=== PATIENT | male | born 1975 | race African-American/Black ===

== ENCOUNTER 2016-11-22 01:31 | Emergency (ER) | payer MEDICAID ==
[~2016-11-22] VITALS: Ht 180.3 cm; Wt 77.0 kg
[2016-11-22] MEDS ORDERED: LIDOCAINE HCL/EPINEPHRINE 1%-EPI 1:100,000 20 ML VIAL INFIL ONE (07:00)
[2016-11-22 07:55] VITALS: BP 118/77
== END 2016-11-22 08:29 | disposition home or self-care (01) ==
LOC: ER 07:27
DX: L03.317 Cellulitis of buttock (principal); J45.909 Unspecified asthma, uncomplicated
CPT/HCPCS: 10060; 87070; 87077; 87205; 99284; J3490; X7700; Z7610

== ENCOUNTER 2016-11-23 08:40 | Emergency (ER) | payer MEDICAID ==
[~2016-11-23] VITALS: Ht 180.3 cm; Wt 78.0 kg
[2016-11-23] MEDS ORDERED: KETOROLAC 60MG/2ML VIAL IM ONE (10:00)
[2016-11-23] MEDS ORDERED: HYDROCODONE/ACETAMINOPHEN 5/325MG TABLET PO ONE (11:00)
[2016-11-23] MEDS ORDERED: LIDOCAINE HCL 1% 20ML VIAL (Pyxis) INJ MC ONE (11:00)
[2016-11-23 11:21] VITALS: BP 121/79
== END 2016-11-23 12:33 | disposition home or self-care (01) ==
LOC: ER 09:51
DX: Z48.01 Encounter for change or removal of surgical wound dressing (principal); J45.909 Unspecified asthma, uncomplicated
CPT/HCPCS: 96372; 99283; J1885; J3490

== ENCOUNTER 2016-11-25 05:09 | Emergency (ER) | payer MEDICAID ==
[~2016-11-25] VITALS: Ht 180.3 cm; Wt 77.0 kg
[2016-11-25 07:26] VITALS: BP 132/71
== END 2016-11-25 08:14 | disposition home or self-care (01) ==
LOC: ER 05:09
DX: Z48.01 Encounter for change or removal of surgical wound dressing (principal); J45.909 Unspecified asthma, uncomplicated
CPT/HCPCS: 99283

== ENCOUNTER 2016-12-16 10:58 | Emergency (ER) | payer MEDICAID ==
[~2016-12-16] VITALS: Ht 180.3 cm; Wt 86.0 kg
[2016-12-16] MEDS ORDERED: CYCLOBENZAPRINE 10MG TABLET PO ONE (12:00)
[2016-12-16] MEDS ORDERED: HYDROCODONE/ACETAMINOPHEN 5/325MG TABLET PO ONE ×2 (12:00→13:15)
[2016-12-16 13:27] VITALS: BP 132/74
== END 2016-12-16 14:59 | disposition home or self-care (01) ==
LOC: ER 11:23
DX: S16.1XXA Strain of muscle, fascia and tendon at neck level, initial encounter (principal); M54.5 Low back pain; R51 Headache; J45.909 Unspecified asthma, uncomplicated; V89.2XXA Person injured in unspecified motor-vehicle accident, traffic, initial encounter; Y93.89 Activity, other specified; Y92.410 Unspecified street and highway as the place of occurrence of the external cause; Y99.8 Other external cause status
CPT/HCPCS: 70450; 72125; 72131; 72170; 99284